=== PATIENT | male | born 1975 ===

== ENCOUNTER 2020-11-24 07:34 | Day surgery (SDC) | payer OTHER ==
[~2020-11-24 07:34] MED LIST: ACETAMINOPHEN 500 MG TAB PO SCH; LACTATED RINGERS 1,000 ML IV SCH; MIDAZOLAM 2 MG/2 ML INJ IV NR
[2020-11-24] MEDS ORDERED: ceFAZolin/STERILE WATER 2 GM/20 ML SYRINGE IV NR (09:20)
--- NOTE | 2020-11-24 09:20 | Anesthesia Consultation ---
Anesthesia Consult and Med Hx Date of service: 11/24/20 - Airway Anesthetic Teeth Evaluation: Good ROM Head & Neck: Adequate (short, thick neck) Mental/Hyoid Distance: Adequate Mallampati Class: Class III Intubation Access Assessment: Possibly Difficult - Pre-Operative Health Status ASA Pre-Surgery Classification: ASA2 Proposed Anesthetic Plan: General - Pulmonary Hx Smoking: No Hx Respiratory Symptoms: No Hx Sleep Apnea: No (SANDHYA PRE SCREEN LOW RISK) - Cardiovascular System Hx Hypertension: Yes - Central Nervous System CVA: No - Endocrine Hx Renal Disease: No Hx Liver Disease: No Hx Insulin Dependent Diabetes: No Hx Non-Insulin Dependent Diabetes: No Hx Thyroid Disease: No - Other Systems Hx Obesity: Yes (BMI 33) - Additional Comments Anesthesia Medical History Comments: No hx anesthetic complications.
[2020-11-24] MEDS ORDERED: HYDROmorphone 1 MG/1 ML INJ IV PRN (09:21)
[2020-11-24] MEDS ORDERED: ONDANSETRON 4 MG/2 ML INJ IV PRN (09:21)
[2020-11-24] MEDS ORDERED: HYDROcodone/ACETAMINOPHEN 5-325 MG TAB PO PRN (09:21)
--- NOTE | 2020-11-24 09:21 | Anesthesia Day of Surgery ---
Anesthesia Day of Surgery - Day of Surgery Patient Examined: Yes Patient H&P Reviewed: Yes Patient is NPO: Yes
[2020-11-24] MEDS ORDERED: LIDOCAINE MPF (2%) 20 MG/1 ML VIAL 5 ML ONE (09:27)
[2020-11-24] MEDS ORDERED: propofoL 200 MG/20 ML VIAL IV ONE (09:27)
[2020-11-24] MEDS ORDERED: SUCCINYLCHOLINE CHLORIDE 200 MG/10 ML INJ MDV ONE (09:27)
[2020-11-24] MEDS ORDERED: fentaNYL 100 MCG/2 ML INJ ONE (09:27)
[2020-11-24] MEDS ORDERED: LIDOCAINE (1%) 10 MG/1 ML VIAL 20 ML MDV ONE (09:37)
[2020-11-24] MEDS ORDERED: BUPIVACAINE/PF (0.5%) 5 MG/1 ML 30 ML VIAL INFILTRATI ONE ×2 (09:37→10:27)
[2020-11-24] MEDS ORDERED: LIDOCAINE (1%) 10 MG/1 ML VIAL 20 ML MDV INFILTRATI ONE (10:27)
[2020-11-24] MEDS ORDERED: SODIUM CHLORIDE 0.9% IRR 1,500 ML BOTTLE IR ONE (10:27)
[2020-11-24] MEDS ORDERED: ROCURONIUM 50 MG/5 ML INJ IV ONE (10:43)
[2020-11-24] MEDS ORDERED: ONDANSETRON 4 MG/2 ML INJ ONE (10:45)
--- NOTE | 2020-11-24 10:53 | Short Stay Summary ---
Short Stay Documentation Date of service: 11/24/20 - History Principal diagnosis: soft tissue mass of left upper back H&P: obtained from office - Allergies and Medications Current Medications: Allergies No Known Allergies Allergy (Verified 11/10/20 15:42) Home Medications Medication Instructions Recorded Confirmed Last Taken Type Losartan [Cozaar] 50 mg PO QDAY 11/10/20 11/24/20 11/23/20 10:00 History Active Medications Acetaminophen (Acetaminophen 500 Mg Tab) 1,000 mg PO PREOP SIMON Stop: 11/24/20 21:00 Last Admin: 11/24/20 09:08 Dose: 1,000 mg Documented by: Hydrocodone Bitart/Acetaminophen (Hydrocodone/Acetaminophen 5-325 Mg Tab) 2 each PO ONCE PRN PRN Reason: Pain, Moderate (4-6) Stop: 11/24/20 13:00 Cefazolin Sodium (Cefazolin/Sterile Water 2 Gm/20 Ml Syringe) 2 gm IV PREOP NR Stop: 11/24/20 11:00 Hydromorphone HCl (Hydromorphone 1 Mg/1 Ml Inj) 0.5 mg IV Q10MIN PRN PRN Reason: Pain , Severe (7-10) Stop: 11/24/20 23:00 Lactated Ringer's (Lactated Ringers) 1,000 mls @ 100 mls/hr IV DIRECT SIMON Stop: 11/24/20 23:59 Last Admin: 11/24/20 09:02 Dose: 100 mls/hr Documented by: Midazolam HCl (Midazolam 2 Mg/2 Ml Inj) 2 mg IV PREOP NR Stop: 11/24/20 21:00 Last Admin: 11/24/20 09:15 Dose: 2 mg Documented by: Ondansetron HCl (Ondansetron 4 Mg/2 Ml Inj) 4 mg IV ONCE PRN PRN Reason: Nausea And Vomiting Stop: 11/24/20 11:00 - Brief post op/procedure progress note Date of procedure: 11/24/20 Pre-op diagnosis: soft tissue mass left upper back Post-op diagnosis: same Procedure: excision soft tissue mass left upper back Anesthesia: GETA, local Findings: 10 cm lipoma Surgeon: JERRY HAZEL Estimated blood loss: minimal Pathology: list (lipoma left back) Specimen disposition: to lab Condition: stable - Hospital course Hospital course: Pt observed in PACU and discharged to home in stable condition when criteria met - Disposition Condition at discharge: Good Disposition: 01 HOME / SELF CARE / HOMELESS Short Stay Discharge Plan Activity: no restrictions Diet: regular Wound: open to air, per your surgeon's advice Additional Instructions: SEE PRINTED DISCHARGE INSTRUCTIONS Follow up with: GILBERTO CARRASQUILLO NP [Primary Care Provider] - 7 Days JERRY HAZEL DO [Staff Physician] - 14 Days Prescriptions: HYDROcodone/APAP 5-325 [Martha 5/325] 1 each PO Q6HR PRN #10 tablet PRN Reason: Pain , Severe (7-10)
[2020-11-24] MEDS ORDERED: LACTATED RINGERS 1,000 ML ONE (10:54)
--- NOTE | 2020-11-24 12:04 | Post Anesthesia Evaluation ---
- Post Anesthesia Evaluation Patient Participated: Yes Airway Patent: Yes Stable Respiratory Function: Yes Nausea/Vomiting: No Temp > 96.8F: Yes Pain Manageable: Yes Adequeate Hydration: Yes Anesthesia Complications: No
--- NOTE | 2020-11-24 12:38 | Operative Report ---
Operative Report Operative Report: Date of procedure: 11/24/20 Pre-op diagnosis: soft tissue mass left upper back Post-op diagnosis: same Procedure: excision soft tissue mass left upper back Anesthesia: GETA, local Findings: 10 cm lipoma Surgeon: JERRY HAZEL Estimated blood loss: minimal Pathology: list (lipoma left back) Specimen disposition: to lab Condition: stable Hospital course: Pt observed in PACU and discharged to home in stable condition when criteria met Indication: Patient is a 45-year-old male who presented to surgery clinic with a mass of the left upper back. Patient stated that the mass was growing in size and causing some discomfort. It was recommended that the mass be excised. All risks, benefits, alternatives to surgery were discussed with the patient questions answered. Consent obtained for back mass excision. Procedure in detail: Patient was identified in the preoperative area and taken back to the operating room. Anesthesia was induced on the stretcher and then the patient was transferred to the operating room table in prone position. All bony prominences were padded appropriately. The hairs on the left upper back were clipped and the area prepped and draped in the usual sterile fashion. Timeout performed. Local anesthetic was infiltrated into the skin at the intended incision site. A 8 cm transverse incision was made over the area of the mass using a 10 blade. Dissection was carried down through the subcutaneous tissue using electrocautery until the mass was encountered. The mass appeared lobulated and fatty consistent with a lipoma. This was dissected free from the surrounding tissue using a combination of blunt dissection and electrocautery. Once the entire mass was dissected it was removed from the wound and measured at 10 cm. It was passed off the table as a specimen. The wound was then irrigated and hemostasis very carefully ensured. The deep layer was closed using a running 3-0 Vicryl stitch. The deep dermal layer was closed using interrupted 3-0 Vicryl stitches. The skin was approximated using 4-0 Monocryl subcuticular running stitch and skin glue. Local anesthetic was infiltrated into the skin and subcutaneous tissue at the end of the case. Once the glue was dry a 4 x 4 gauze was placed over the incision and secured with Elastoplast tape for compression. At the end of the case, all sponge, instrument, sharp counts were correct x2. The patient was transferred to the stretcher in supine position. He was extubated and taken to PACU in stable condition.
[2020-11-24 13:09] VITALS: BP 133/84
== END 2020-11-24 12:00 | disposition home or self-care (01) ==
LOC: OR 07:34
PROVIDERS: ATTEND Surgery
DX: R22.2 Localized swelling, mass and lump, trunk (principal); C17.1 Malignant neoplasm of jejunum; E66.9 Obesity, unspecified; I10 Essential (primary) hypertension; Z68.33 Body mass index [BMI] 33.0-33.9, adult; Z79.899 Other long term (current) drug therapy; Z98.890 Other specified postprocedural states
CPT/HCPCS: 21931; 88304; J0330; J0690; J2250; J2405; J2704; J3010; J7120